=== PATIENT | male | born 1955 | race Caucasian/White ===

== ENCOUNTER 2020-04-01 18:03 | Inpatient (IN) | payer MEDICARE ==
[~2020-04-01] VITALS: Ht 177.8 cm; Wt 128.8 kg
[2020-04-01 18:12] VITALS: BP 183/93
[2020-04-01] MEDS ORDERED: OMEPRAZOLE 20 M20 M1 PO (18:14)
[2020-04-01] MEDS ORDERED: PROMS25 WY PO (18:14)
[2020-04-01] MEDS ORDERED: LISINOPRIL2.5 MG (18:14)
[2020-04-01 18:39] LABS: HEMATOCRIT 44.7 % (42.0-52.0); HEMOGLOBIN 15.1 gm/dL (14.0-18.0); MCH 28.2 pg (26.0-34.0); MCHC 33.7 g/dL (28.0-37.0); MCV 83.6 fL (80.0-100.0); NUCLEATED RBCS 0 /100WBC; PLATELET COUNT* 309 thou/uL (150-400); RBC 5.35 mil/uL (4.50-6.00); RDW-CV 14.2 % (10.5-14.5); WBC 20.4 thou/uL (4.0-11.0)
[2020-04-01 18:46] LABS: CREATININE 1.1 mg/dL (0.6-1.3); POTASSIUM 4.2 mmol/L (3.5-5.1)
[2020-04-01 18:50] LABS: ALBUMIN 3.2 g/dL (3.4-5.0); TOTAL BILIRUBIN 0.6 mg/dL (<0.1-1.0); TOTAL PROTEIN 8.2 g/dL (6.4-8.2)
[2020-04-01 18:55] LABS: INFLUENZA A ANTIGEN Negative (Negative); INFLUENZA B ANTIGEN Negative (Negative)
[2020-04-01 19:26] LABS: ABSOLUTE LYMPHOCYTES 3.9 thou/uL (0.8-5.3); ABSOLUTE MONOCYTES 0.6 thou/uL (0.0-1.2); ABSOLUTE NEUTROPHILS 15.9 thou/uL (1.6-8.1); ATYPICAL LYMPHS 8 %
[2020-04-01 19:27] LABS: PLATELET ESTIMATE ADEQUATE
[2020-04-01 20:29] LABS: URINE BILIRUBIN NEGATIVE (Negative); URINE BLOOD 1+ (Negative); URINE CLARITY HAZY; URINE COLOR YELLOW; URINE GLUCOSE-RANDOM NEGATIVE (Negative); URINE KETONES TRACE (Negative); URINE LEUKOCYTES-REFLEX NEGATIVE (Negative); URINE NITRITE-REFLEX NEGATIVE (Negative); URINE PROTEIN TRACE (Negative); URINE SPECIFIC GRAVITY 1.025 (1.005-1.030); URINE UROBILINOGEN 0.2 E.U./dl (0.2-1.0)
[2020-04-01 20:36] LABS: BACTERIA-REFLEX None Seen /HPF (None Seen); CASTS None Seen /LPF (None Seen); CRYSTALS None Seen /LPF (None Seen); MUCUS >6 Heavy strn/LPF (None Seen); SQUAMOUS 0-3 Few /LPF (0-3); URINE RBC 0-2 Rare /HPF (0-2); URINE WBC-REFLEX None Seen /HPF (0-5)
[2020-04-01 21:31] LABS: AMP/METHAMP Negative (Negative); BARBITURATES Negative (Negative); BENZODIAZEPINES Negative (Negative); COCAINE Negative (Negative); METHADONE Negative (Negative); OPIATES Negative (Negative); PCP Negative (Negative); THC Negative (Negative)
[2020-04-01 22:24] VITALS: BP 159/78
[2020-04-01 23:00] VITALS: BP 169/93
[2020-04-02 08:16] VITALS: BP 153/94
--- NOTE | 2020-04-02 14:59 | EKG ---
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1955 Requested By: Divya Rodríguez Order Number: [id number] MD: Les Elaine Measurements Intervals [place] Rate: 113 P: 50 ND: 145 QRS: 28 QRSD: 82 T: 3 QT: 310 QTc: 425 Interpretive Statements Sinus tachycardia Consider inferior infarct Delayed R wave progression Baseline wander in lead(s) V3 No previous ECG available for comparison Electronically Signed On 04-02-2020 14:59:43 CDT by Les Elaine [email or web address] <ELECTRONICALLY SIGNED> By: Les Elaine MD, FACC 04/02/20 1459 1815 181 Les Elaine MD, FACC /EPI
[2020-04-02 16:01] VITALS: BP 145/94
[2020-04-03 00:05] VITALS: BP 155/101
[2020-04-03 04:02] LABS: ABSOLUTE BASOPHILS 0.1 thou/uL (0.0-0.2); ABSOLUTE EOSINOPHILS 0.2 thou/uL (0.0-0.7); ABSOLUTE LYMPHOCYTES 2.1 thou/uL (0.8-5.3); ABSOLUTE MONOCYTES 1.8 thou/uL (0.0-1.2); ABSOLUTE NEUTROPHILS 18.9 thou/uL (1.6-8.1); BASOPHILS 0.3 %; EOSINOPHILS 0.8 %; HEMATOCRIT 39.5 % (42.0-52.0); LYMPHOCYTES 8.9 %; MCH 27.7 pg (26.0-34.0); MONOCYTES 7.6 %; NUCLEATED RBCS 0 /100WBC; PLATELET COUNT* 244 thou/uL (150-400); POLYS 82.4 %; RBC 4.71 mil/uL (4.50-6.00); RDW-CV 13.9 % (10.5-14.5)
[2020-04-03 04:04] LABS: HEMOGLOBIN 13.1 gm/dL (14.0-18.0)
[2020-04-03 04:16] VITALS: BP 130/112
[2020-04-03 04:50] LABS: ALBUMIN 2.3 g/dL (3.4-5.0); ALKALINE PHOSPHATASE 89 U/L (46-116); ANION GAP 9 mmol/L (7-16); BUN 14 mg/dL (7-18); CALCIUM 8.4 mg/dL (8.5-10.1); CHLORIDE 101 mmol/L (98-107); CHOLESTEROL 114 mg/dL (<200); CO2 25 mmol/L (21-32); GLUCOSE 116 mg/dL (70-99); HDL CHOLESTEROL 27 mg/dL (>40); LDL CHOLESTEROL 72 mg/dL (<100); LIPASE 362 U/L (73-393); POTASSIUM 4.1 mmol/L (3.5-5.1); SGOT 14 U/L (15-37); SGPT 11 U/L (30-65); SODIUM 135 mmol/L (136-145); TC:HDL 4.2 Ratio (Not establshd); TOTAL BILIRUBIN 0.6 mg/dL (<0.1-1.0); TRIGLYCERIDE 79 mg/dL (<150); VLDL 16 mg/dL (<40)
[2020-04-03 05:02] LABS: SERUM ASSESSMENT CLEAR
[2020-04-03 08:00] VITALS: BP 136/92
[2020-04-03 12:00] VITALS: BP 148/78
[2020-04-03 16:00] VITALS: BP 146/96
[2020-04-03 20:00] VITALS: BP 133/71
[2020-04-04 04:00] VITALS: BP 122/89
[2020-04-04 08:24] LABS: ABSOLUTE BASOPHILS 0.1 thou/uL (0.0-0.2); ABSOLUTE EOSINOPHILS 0.4 thou/uL (0.0-0.7); ABSOLUTE LYMPHOCYTES 1.8 thou/uL (0.8-5.3); ABSOLUTE NEUTROPHILS 12.6 thou/uL (1.6-8.1); BASOPHILS 0.5 %; EOSINOPHILS 2.3 %; HEMOGLOBIN 12.4 gm/dL (14.0-18.0); LYMPHOCYTES 11.3 %; MCH 27.7 pg (26.0-34.0); MCHC 32.6 g/dL (28.0-37.0); MONOCYTES 6.2 %; MPV 8.7 fl. (7.2-11.1); NUCLEATED RBCS 0 /100WBC; PLATELET COUNT* 238 thou/uL (150-400); POLYS 79.7 %; RBC 4.47 mil/uL (4.50-6.00); RDW-CV 13.8 % (10.5-14.5); WBC 15.9 thou/uL (4.0-11.0)
[2020-04-04 08:32] LABS: ALBUMIN 2.1 g/dL (3.4-5.0); CALCIUM 7.7 mg/dL (8.5-10.1); POTASSIUM 3.8 mmol/L (3.5-5.1); TOTAL BILIRUBIN 0.5 mg/dL (<0.1-1.0); TOTAL PROTEIN 5.8 g/dL (6.4-8.2)
--- NOTE | 2020-04-04 10:17 | EKG ---
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1955 Requested By: Domenic Greene Order Number: [id number] Sydnie MD: Anthony Camacho Measurements Intervals [place] Rate: 113 P: 2 NH: 138 QRS: 29 QRSD: 94 T: -1 QT: 326 QTc: 447 Interpretive Statements Sinus tachycardia poor r wave progression Low voltage, precordial leads Compared to ECG 04/01/2020 18:15:21 Low QRS voltage now present Electronically Signed On 04-04-2020 10:16:51 [employer] by Anthony Camacho [email or web address] <ELECTRONICALLY SIGNED> By: Anthony Camacho MD, FACC 04/04/20 1016 0236 0236 Anthony Camacho MD, FAC /EPI
[2020-04-04 14:26] VITALS: BP 132/88
[2020-04-04 16:00] VITALS: BP 146/92
[2020-04-04 20:00] VITALS: BP 136/61
[2020-04-05] VITALS: BP 131/83
[2020-04-05 04:00] VITALS: BP 133/86
[2020-04-05 07:34] LABS: CALCIUM 8.2 mg/dL (8.5-10.1); CREATININE 0.9 mg/dL (0.6-1.3); POTASSIUM 3.2 mmol/L (3.5-5.1); TOTAL BILIRUBIN 0.5 mg/dL (<0.1-1.0); TOTAL PROTEIN 6.5 g/dL (6.4-8.2)
[2020-04-05 07:38] LABS: LIPASE 145 U/L (73-393); TRIGLYCERIDE 114 mg/dL (<150)
[2020-04-05 08:00] VITALS: BP 139/83
[2020-04-05 11:22] VITALS: BP 125/83
--- NOTE | 2020-04-05 13:03 | CON ---
[address] [address] CONSULTATION Name: ALTHEA LAI Room: [address] IN M.R.#: [id number] Admission: 04/01/20 Attend Phys: Ernesto Barry MD Discharge: Date of : 53 Report #: [id number] THIS REPORT FOR: //name// cc: CHEN CORONA NP, KATHERINE J. NP ~ DATE OF SERVICE: 04/04/2020 Please note at the time of this dictation, the patient was seen and physically examined by myself. REASON FOR CONSULTATION: Pancreatitis. HISTORY OF PRESENT ILLNESS: This is a 64-year-old male who presented to the Emergency Room with recurrent abdominal pain. The patient states approximately 2 weeks ago, he had this severe abdominal discomfort in the epigastric, he felt very bloated. He tried to go to work and had to come back home and just really has not been eating very much over the last 2 weeks. He states his pain got significantly better and he was feeling significantly better over the weekend. His girlfriend tested positive for COVID last Saturday, so he went and got tested and was positive as well last week, Saturday or . The patient states that he was doing fine and after he tested positive, then towards the end of the week on Saturday, pain returned and was getting significantly worse, prompting him to come in to be seen. He denied any fever or chills. He did have some nausea and vomiting associated with this and it was similar to 2 weeks ago when he was feeling sick as well. He states since he really has not eaten much over the last 2 weeks, his bowels have not been moving very regularly. Normally they move regularly, soft and formed daily, but with a decreased oral intake he has had minimal bowel movements. The patient has never had an EGD or colonoscopy in the past. He denies any other GI symptoms at this time. Currently, at the present time he states his abdominal pain is only around 2 or 3. ALLERGIES: No known drug allergies. MEDICATIONS FROM HOME: See his MAR. PAST MEDICAL HISTORY: Hypertension. PAST SURGICAL HISTORY: Bilateral knee replacement. FAMILY HISTORY: Negative for any GI or female cancers. SOCIAL HISTORY: Denies any alcohol, tobacco or illegal drug use. REVIEW OF SYSTEMS: Twelve-point review of systems is essentially negative except what is [place] [address] CONSULTATION Name: ALTHEA LAI Room: [address] IN [facility]#: [id number] Admission: 04/01/20 Attend Phys: Ernesto Barry MD Discharge: Date of : 53 Report #: [id number] PHYSICAL EXAMINATION: VITAL SIGNS: Temperature 36.4, pulse 108, respirations 16, blood pressure 122/89. HEART: Regular rate and rhythm, somewhat tachycardic. LUNGS: Clear. ABDOMEN: Soft, positive bowel sounds in all 4 quadrants with some mild tenderness noted in the upper quadrants. LABORATORY DATA: Lipase on admission was 1185 as of this morning, he was 158, white count is 15.9. Hemoglobin is 12.4, platelets are 238. LFTs are completely normal. His GFR is 75. CT on admission on Saturday showed normal liver, normal gallbladder. Pancreas demonstrated stranding around the pancreas involving acute pancreatitis without any definite focal fluid collection otherwise normal. Ultrasound of the abdomen shows some hepatic steatosis, normal gallbladder with no wall thickening, otherwise negative. IMPRESSION: 1. Abdominal pain, improving. 2. Abnormal CT noted with pancreatic stranding. 3. Nausea and vomiting has resolved. 4. Leukocytosis. 5. Hepatic steatosis. PLAN: 1. Clear liquid diet and it can advance as tolerated. 2. The patient will need an outpatient EUS and colonoscopy for screening purposes once he is discharged and his pancreatitis has healed in the next 6 weeks or so. 3. Further recommendations to be made once Dr. Christian sees the patient later today. Thank you for allowing us to participate in this patient's care. Please do not hesitate to call with any questions in regard to this consult. <ELECTRONICALLY SIGNED> By: Viridiana Christian MD 04/05/20 1303 1015 [id number] Christian MD /nt
[2020-04-05 14:58] VITALS: BP 125/83
== END 2020-04-05 15:10 | disposition home or self-care (01) | DRG 438 ==
LOC: M.ERS 18:03 → M.ORTHSURG 21:36 → M.TBA-ER 21:36 → M.ORTHSURG 23:00 → M.2W 04-03 07:45
PROVIDERS: Nurse Practitioner Family; Personal Emergency Response Attendant; ADMIT Internal Medicine; ATTEND Internal Medicine
DX: K85.90 Acute pancreatitis without necrosis or infection, unspecified (principal); R65.11 Systemic inflammatory response syndrome (SIRS) of non-infectious origin with acute organ dysfunction; K76.0 Fatty (change of) liver, not elsewhere classified; E66.01 Morbid (severe) obesity due to excess calories; I10 Essential (primary) hypertension; M19.90 Unspecified osteoarthritis, unspecified site; K59.00 Constipation, unspecified; Z96.653 Presence of artificial knee joint, bilateral; Z79.899 Other long term (current) drug therapy; Z68.38 Body mass index [BMI] 38.0-38.9, adult; Z86.19 Personal history of other infectious and parasitic diseases; Z20.828 Contact with and (suspected) exposure to other viral communicable diseases